=== PATIENT | male | born 1975 ===

== ENCOUNTER 2018-01-01 20:12 | Inpatient (IN) | payer MEDICAID, OTHER ==
[2018-01-01] MEDS ORDERED: Sodium Chloride 0.9% 1,000 ML IV STA ×2 (20:40→23:06)
--- NOTE | 2018-01-01 20:43 | ED PDOC ---
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 Denies fever, vomiting, chest pain, shortness of breath, palpitations, urinary symptoms, changes in bowel movements. Patient reports similar symptoms 2 years ago, states he was told he needed surgery but never followed up Past Medical History Reviewed: Historical Data, Nursing Documentation, Vital Signs Vital Signs: Last Vital Signs Temp 97.4 F L 01/02/18 01:26 Pulse 64 01/02/18 01:26 Resp 19 01/02/18 01:26 BP 127/80 01/02/18 01:26 Pulse Ox 100 01/02/18 02:57 - Medical History PMH: No Chronic Diseases Denies: HIV - Surgical History Surgical History: No Surg Hx - Family History Family History: States: No Known Family Hx - Home Medications Home Medications: Ambulatory Orders Medication Instructions Recorded Ibuprofen [Motrin Tab] 01/02/18 - Allergies Allergies/Adverse Reactions: Allergies Allergy/AdvReac Type Severity Reaction Status Date / Time No Known Allergies Allergy Verified 09/30/14 12:25 Review of Systems ROS Statement: Except As Marked, All Systems Reviewed And Found Negative Gastrointestinal: Positive for: Abdominal Pain Physical Exam - Reviewed Nursing Documentation Reviewed: Yes Vital Signs Reviewed: Yes - Physical Exam Appears: Positive for: Well, Non-toxic, Uncomfortable Head Exam: Positive for: ATRAUMATIC, NORMAL INSPECTION, NORMOCEPHALIC Skin: Positive for: Normal Color, Diaphoresis Eye Exam: Positive for: Normal appearance ENT: Positive for: Normal ENT Inspection Cardiovascular/Chest: Positive for: Regular Rate, Rhythm Respiratory: Positive for: Normal Breath Sounds Gastrointestinal/Abdominal: Positive for: Bowel Sounds, Soft, Tenderness (ruq, epigastric) Back: Positive for: Normal Inspection Extremity: Positive for: Normal ROM Neurologic/Psych: Positive for: Alert, Oriented - Laboratory Results Result Diagrams: 01/01/18 21:04 01/01/18 21:04 - ECG ECG: Positive for: Viewed By Me (reviewed by ED attending) ECG Rhythm: Positive for: Sinus Bradycardia (55bpm) O2 Sat by Pulse Oximetry: 100 - Progress ED Course And Treament: labs, RUQ u/s, IV fluids, IV toradol IV morphine dose given for no improvement of pain after TOradol EXAM: US Abdomen Limited, Right Upper Quadrant CLINICAL HISTORY: 42 years old, male; Pain; Abdominal pain; Epigastric; Additional info: Ruq pain TECHNIQUE: Real-time ultrasound of the right upper quadrant with image documentation. COMPARISON: No relevant prior studies available. FINDINGS: Liver: Fatty infiltration. No mass. No intrahepatic ductal dilatation. Gallbladder: Gallstones. Up to 0.32 cm wall thickness. Small pericholecystic fluid. No sonographic Meza's sign. Common bile duct: Up to 0.86 cm in diameter. No stones. Pancreas: Unremarkable as visualized. Right kidney: Normal echogenicity. No hydronephrosis. IMPRESSION: 1. Findings concerning for acute cholecystitis. Clinical correlation is needed. 2. Biliary ductal dilatation. Consider MRCP. 3. Incidental/non-acute findings are described above. second IV morphine dose ordered for returning pain after u/s On re-eval, patient with only "small" amount of improvement of pain after analgesics given in ED. IV cipro, IV flagyl dose ordered Case discussed with Dr. Rodriguez, Hospitalist on-call for admission Case discussed with Dr. Ospina, surgical dental assistant on-call for consult Disposition - Clinical Impression Clinical Impression: Cholecystitis - Patient ED Disposition Is Patient to be Admitted: Yes - Disposition Disposition Time: 23:40 Condition: FAIR
[2018-01-01] MEDS ORDERED: Morphine 4 MG/ML VIAL ONE ×2 (21:04→22:32)
[2018-01-01 21:11] LABS: BASO % 0.5 % (0.0-2.0); EOS # 0.1 K/uL (0.0-0.7); EOS % 1.1 % (0.0-4.0); LYMPH % 33.4 % (20.0-40.0); MEAN CELL VOLUME 89.1 fl (80.0-94.0); MEAN CORPUSCULAR HGB CONC 34.8 g/dL (33.0-37.0); MEAN PLATELET VOLUME 8.2 fl (7.2-11.7); MONO # 0.8 K/uL (0.0-0.8); MONO % 9.5 % (0.0-10.0); NEUT % 55.5 % (50.0-75.0); NRBC % 0.1 % (0.0-0.0); RBC 5.17 Mil/uL (4.40-5.90); RED CELL DISTRIBUTION WIDTH 14.4 % (11.5-14.5)
[2018-01-01 21:20] LABS: ALB/GLOB RATIO 1.2 (1.0-2.1); ALBUMIN 4.8 g/dL (3.5-5.0); ALT/SGPT 98 U/L (21-72); AST/SGOT 42 U/L (17-59); BLOOD UREA NITROGEN 17 mg/dl (9-20); GFR AFRICAN-AMERICAN > 60; GFR NON-AFRICAN AMERICAN > 60; LIPASE 201 U/L (23-300)
[2018-01-01 21:35] LABS: PARTIAL THROMBOPLASTIN TIME 34.8 Seconds (25.6-37.1); PROTHROMBIN TIME 11.4 Seconds (9.8-13.1)
--- NOTE | 2018-01-01 22:48 | US ---
EXAM: US Abdomen Limited, Right Upper Quadrant CLINICAL HISTORY: 42 years old, male; Pain; Abdominal pain; Epigastric; Additional info: Ruq pain TECHNIQUE: Real-time ultrasound of the right upper quadrant with image documentation. COMPARISON: No relevant prior studies available. FINDINGS: Liver: Fatty infiltration. No mass. No intrahepatic ductal dilatation. Gallbladder: Gallstones. Up to 0.32 cm wall thickness. Small pericholecystic fluid. No sonographic Meza's sign. Common bile duct: Up to 0.86 cm in diameter. No stones. Pancreas: Unremarkable as visualized. Right kidney: Normal echogenicity. No hydronephrosis. IMPRESSION: 1. Findings concerning for acute cholecystitis. Clinical correlation is needed. 2. Biliary ductal dilatation. Consider MRCP. 3. Incidental/non-acute findings are described above.
[2018-01-01 23:16] LABS: URINE BILIRUBIN NEGATIVE (NEGATIVE); URINE BLOOD NEGATIVE (NEGATIVE); URINE CLARITY CLEAR (Clear); URINE COLOR YELLOW (YELLOW); URINE GLUCOSE (UA) NEG (Normal); URINE LEUKOCYTE ESTERASE NEG Leu/uL (Negative); URINE PROTEIN NEGATIVE (NEGATIVE); URINE UROBILINOGEN 0.2-1.0 mg/dL (0.2-1.0)
[2018-01-01] MEDS ORDERED: Ciprofloxacin 400mg/200ml D5W 400 MG/200 ML BAG IV ONE (23:46)
[2018-01-01] MEDS ORDERED: metroNIDAZOLE 500mg/100ml NS 100 ML IV STA (23:46)
--- NOTE | 2018-01-02 00:13 | CP.PCM.CON ---
History of Present Illness - History of Present Illness History of Present Illness: Surgery Consult note. Dr. Kraft 42yo M with no significant PMHx here for evaluation of abdominal pain. Reports that the pain started at 5PM today, 30 mins after he had grilled chicken and rice. Pain is located in the RUQ, does not radiate. Described as sharp, severe. Does report some nausea, denies vomiting. Denies any fevers of chills. Has had similar symptoms in the past. Seen in [facility] in 2014 for biliary colic and was recommended f/u as outpatient to schedule elective all. Patient did not follow up. He reports another episode 1 year ago and was seen at another hospital, he was offered cholecystectomy but he states that he did not want it at the time as he lives alone and did not have any support at home. At this time , patient states that he is agreeable to surgery if warranted. Currently denies CP/SOB. No Headaches. No urinary complaints. No sick contacts. PMHx: denies PSHx: denies Family Hx: non-contributory Social Hx: Lives alone. Denies Tobacco, Denies ETOH, Denies illicit drugs NKDA Review of Systems - Review of Systems All systems: reviewed and no additional remarkable complaints except - Constitutional Constitutional: absent: Chills, Fever - Cardiovascular Cardiovascular: absent: Chest Pain, Dyspnea - Respiratory Respiratory: absent: Dyspnea - Gastrointestinal Gastrointestinal: Abdominal Pain, Nausea. absent: Constipation, Cramping, Diarrhea, Hematemesis, Hematochezia, Vomiting - Genitourinary Genitourinary: absent: Dysuria Past Patient History - Infectious Disease Hx of Infectious Diseases: None - Tetanus Immunizations Tetanus Immunization: Unknown - Past Medical History & Family History Past Medical History?: No Past Family History: Reviewed and not pertinent - Past Social History Smoking Status: Never Smoked Alcohol: None Drugs: Denies Home Situation {Lives}: Alone - HEMATOLOGICAL/ONCOLOGICAL Hx Human Immunodeficiency Virus (HIV): No - MUSCULOSKELETAL/RHEUMATOLOGICAL Hx Falls: No - PSYCHIATRIC Hx Substance Use: No Meds Allergies/Adverse Reactions: Allergies Allergy/AdvReac Type Severity Reaction Status Date / Time No Known Allergies Allergy Verified 09/30/14 12:25 - Medications Medications: Current Medications Ciprofloxacin (Cipro 400mg/200ml Dsw) 400 mg in 200 mls @ 400 mls/hr IV ONCE ONE PRN Reason: Protocol Stop: 01/02/18 00:15 Metronidazole (Flagyl 500mg/100ml Ns) 100 mls @ 100 mls/hr IV STAT STA PRN Reason: Protocol Stop: 01/02/18 00:45 Physical Exam - Constitutional Appears: Non-toxic, No Acute Distress - Head Exam Head Exam: ATRAUMATIC, NORMAL INSPECTION, NORMOCEPHALIC - Eye Exam Eye Exam: EOMI, Scleral icterus (mild scleral icterus noted) - ENT Exam ENT Exam: Mucous Membranes Moist Additional comments: some yellowing noted under the tongue - Respiratory Exam Respiratory Exam: NORMAL BREATHING PATTERN. absent: Accessory Muscle Use, Respiratory Distress - Cardiovascular Exam Cardiovascular Exam: RRR. absent: JVD - GI/Abdominal Exam GI & Abdominal Exam: Soft. absent: Distended, Firm, Guarding, Rebound, Rigid Additional comments: RUQ tenderness to palpation. No rebound, no guarding. - Extremities Exam Extremities exam: Positive for: normal inspection. Negative for: calf tenderness - Neurological Exam Neurological exam: Alert, Oriented x3 - Psychiatric Exam Psychiatric exam: Normal Affect, Normal Mood - Skin Skin Exam: Dry, Normal Color, Warm Results - Vital Signs Recent Vital Signs: Last Vital Signs Temp 97.7 F 01/01/18 20:29 Pulse 77 01/01/18 20:29 Resp 18 01/01/18 20:29 BP 151/86 H 01/01/18 22:32 Pulse Ox 100 01/01/18 23:29 - Labs Result Diagrams: 01/01/18 21:04 01/01/18 21:04 Labs: Laboratory Results - last 24 hr 01/01/18 01/01/18 01/01/18 21:04 21:04 21:04 WBC 9.0 D RBC 5.17 Hgb 16.0 Hct 46.0 MCV 89.1 MCH 31.0 MCHC 34.8 RDW 14.4 Plt Count 224 MPV 8.2 Neut % (Auto) 55.5 Lymph % (Auto) 33.4 [place] % (Auto) 9.5 Eos % (Auto) 1.1 Baso % (Auto) 0.5 Neut # (Auto) 5.0 Lymph # (Auto) 3.0 [place] # (Auto) 0.8 Eos # (Auto) 0.1 Baso # (Auto) 0.0 PT 11.4 INR 1.0 APTT 34.8 Sodium 142 Potassium 3.4 L Chloride 102 Carbon Dioxide 25 Anion Gap 18 BUN 17 Creatinine 0.7 L Est GFR ( Amer) > 60 Est GFR (Non-Af Amer) > 60 Random Glucose 127 H Calcium 9.0 Total Bilirubin 2.4 H AST 42 ALT 98 H D Alkaline Phosphatase 67 Total Protein 8.6 H Albumin 4.8 Globulin 3.8 Albumin/Globulin Ratio 1.2 Lipase 201 Urine Color Urine Clarity Urine pH Ur Specific [place] Urine Protein Urine Glucose (UA) Urine Ketones Urine Blood Urine Nitrate Urine Bilirubin Urine Urobilinogen Ur Leukocyte Esterase Urine RBC (Auto) Urine Microscopic WBC 01/01/18 23:10 WBC RBC Hgb Hct MCV MCH MCHC RDW Plt Count MPV Neut % (Auto) Lymph % (Auto) [place] % (Auto) Eos % (Auto) Baso % (Auto) Neut # (Auto) Lymph # (Auto) [place] # (Auto) Eos # (Auto) Baso # (Auto) PT INR APTT Sodium Potassium Chloride Carbon Dioxide Anion Gap BUN Creatinine Est GFR ( Amer) Est GFR (Non-Af Amer) Random Glucose Calcium Total Bilirubin AST ALT Alkaline Phosphatase Total Protein Albumin Globulin Albumin/Globulin Ratio Lipase Urine Color Yellow Urine Clarity Clear Urine pH 7.0 Ur Specific [place] 1.016 Urine Protein Negative Urine Glucose (UA) Neg Urine Ketones Negative Urine Blood Negative Urine Nitrate Negative Urine Bilirubin Negative Urine Urobilinogen 0.2-1.0 Ur Leukocyte Esterase Neg Urine RBC (Auto) 2 Urine Microscopic WBC < 1 Assessment & Plan - Assessment and Plan (Free Text) Assessment: 42yo M with cholecystitis. r/o choledocholithiasis, r/o cholangitis - Abd US noted: cholelithiasis, CBD dilatation 8.6mm, mild GB wall thickening 3.2mm, small perichole fluid. - Lipase upper limits of normal - elevated LFTs. Hyperbilirubinemia Plan: - NPO - IVF - Continue Abx - Consider ERCP in the setting of RUQ pain, CBD dilatation, jaundice and upper limit normal lipase - f/u GI recs - f/u AM labs. Trend LFTs - We will monitor patient's clinical status and make further recommendations as needed. Further recs as per Dr. Swapnil Ospina PGY1 surgery pager: [phone]
[2018-01-02] MEDS ORDERED: HYDROmorphone 0.5 mg/0.5 ml ISec IVP PRN (00:16)
[2018-01-02] MEDS ORDERED: Ciprofloxacin 400mg/200ml D5W 400 MG/200 ML BAG IVPB ONE (00:47)
[2018-01-02] MEDS ORDERED: metroNIDAZOLE 500mg/100ml NS 100 ML IVPB ONE (00:47)
--- NOTE | 2018-01-02 01:18 | CP.PCM.HP ---
History of Present Illness - History of Present Illness History of Present Illness: CC: Abdominal pain This is a 42 yo male with pmh of previous admission in 2015 with biliary colic, seen by surgery and was recommended to f/u as outpatient to schedule elective all but did not follow up, now presenting to the ED with c/o 5 days of intractable right upper quadrant pain, moderate to severe, crampy, severe, and progressively worsening, associated with nausea without vomiting. In the ED, the patient was found to be hemodynamically stable. No WBC elevation, does have K 3.4, mild elevation in Total bilirubin to 2.4. Abdominal ultrasound does have findings concerning for acute cholecystitis with some biliary ductal dilatation. Patient denies chest pain, shortness of breath, fevers, chills, vomiting, diarrhea, headache. All of the patient's questions were answered at the bedside. Present on Admission - Present on Admission Any Indicators Present on Admission: No History of DVT/PE: No History of Uncontrolled Diabetes: No Review of Systems - Review of Systems Review of Systems: A 12 point review of systems was conducted and found to be negative other than what was mentioned in the HPI. Past Patient History - Infectious Disease Hx of Infectious Diseases: None - Tetanus Immunizations Tetanus Immunization: Unknown - Past Medical History & Family History Past Medical History?: No Past Family History: Reviewed and not pertinent - Past Social History Smoking Status: Never Smoked Alcohol: None Drugs: Denies Home Situation {Lives}: Alone - HEMATOLOGICAL/ONCOLOGICAL Hx Human Immunodeficiency Virus (HIV): No - MUSCULOSKELETAL/RHEUMATOLOGICAL Hx Falls: No - PSYCHIATRIC Hx Substance Use: No Meds Allergies/Adverse Reactions: Allergies Allergy/AdvReac Type Severity Reaction Status Date / Time No Known Allergies Allergy Verified 09/30/14 12:25 Physical Exam - Additional Findings Additional findings: Physical exam: Constitutional- cooperative, awake, alert Head- NCAT, PERRL Eye- PERRL, EOMI. +scleral icterus ENT- normal exam, MMM. Neck- normal inspection, supple, no JVD Respiratory- CTAB, no wheezes rales rhonchi Cardiovascular- RRR, +S1, +S2 no MRG GI/Abdominal- + RUQ pain to palpation. normal bowel sounds, soft, no mass, no hsm Skin- warm, dry Extremities Exam- normal capillary refill, normal inspection Neurological Exam- alert, awake, oriented Psych- normal mood, normal affect Results - Vital Signs Recent Vital Signs: Last Vital Signs Temp 97.7 F 01/01/18 20:29 Pulse 77 01/01/18 20:29 Resp 18 01/01/18 20:29 BP 151/86 H 01/01/18 22:32 Pulse Ox 100 01/01/18 23:29 - Labs Result Diagrams: 01/01/18 21:04 01/01/18 21:04 Labs: Laboratory Results - last 24 hr 01/01/18 01/01/18 01/01/18 21:04 21:04 21:04 WBC 9.0 D RBC 5.17 Hgb 16.0 Hct 46.0 MCV 89.1 MCH 31.0 MCHC 34.8 RDW 14.4 Plt Count 224 MPV 8.2 Neut % (Auto) 55.5 Lymph % (Auto) 33.4 [place] % (Auto) 9.5 Eos % (Auto) 1.1 Baso % (Auto) 0.5 Neut # (Auto) 5.0 Lymph # (Auto) 3.0 [place] # (Auto) 0.8 Eos # (Auto) 0.1 Baso # (Auto) 0.0 PT 11.4 INR 1.0 APTT 34.8 Sodium 142 Potassium 3.4 L Chloride 102 Carbon Dioxide 25 Anion Gap 18 BUN 17 Creatinine 0.7 L Est GFR ( Amer) > 60 Est GFR (Non-Af Amer) > 60 Random Glucose 127 H Calcium 9.0 Total Bilirubin 2.4 H AST 42 ALT 98 H D Alkaline Phosphatase 67 Total Protein 8.6 H Albumin 4.8 Globulin 3.8 Albumin/Globulin Ratio 1.2 Lipase 201 Urine Color Urine Clarity Urine pH Ur Specific [place] Urine Protein Urine Glucose (UA) Urine Ketones Urine Blood Urine Nitrate Urine Bilirubin Urine Urobilinogen Ur Leukocyte Esterase Urine RBC (Auto) Urine Microscopic WBC 01/01/18 23:10 WBC RBC Hgb Hct MCV MCH MCHC RDW Plt Count MPV Neut % (Auto) Lymph % (Auto) [place] % (Auto) Eos % (Auto) Baso % (Auto) Neut # (Auto) Lymph # (Auto) [place] # (Auto) Eos # (Auto) Baso # (Auto) PT INR APTT Sodium Potassium Chloride Carbon Dioxide Anion Gap BUN Creatinine Est GFR ( Amer) Est GFR (Non-Af Amer) Random Glucose Calcium Total Bilirubin AST ALT Alkaline Phosphatase Total Protein Albumin Globulin Albumin/Globulin Ratio Lipase Urine Color Yellow Urine Clarity Clear Urine pH 7.0 Ur Specific [place] 1.016 Urine Protein Negative Urine Glucose (UA) Neg Urine Ketones Negative Urine Blood Negative Urine Nitrate Negative Urine Bilirubin Negative Urine Urobilinogen 0.2-1.0 Ur Leukocyte Esterase Neg Urine RBC (Auto) 2 Urine Microscopic WBC < 1 Assessment & Plan - Assessment and Plan (Free Text) Plan: ASSESSMENT/PLAN This is a 42 yo male with pmh of previous admission in 2014 with biliary colic, seen by surgery and was recommended to f/u as outpatient to schedule elective all but did not follow up, now presenting to the ED with c/o 5 days of intractable right upper quadrant pain, moderate to severe, crampy, severe, and progressively worsening, associated with nausea without vomiting. Being admitted for acute cholecystitis for further workup and management 1) Acute cholecystitis, r/o choledocholithiasis - Admit to med/surg - Consultation with Dr. Kraft, surgery - Consultation with Dr. Ferrara, GI - In the setting of biliary ductal dilatation, will order MRCP for further evaluation of this - Trend transaminases/bilirubin - Zofran PRN for nausea - Pain control with dilaudid - IV fluids - Cipro/Flagyl - NPO status 2) Hypokalemia - likely due to poor GI intake - replete 3) DVT prophylaxis - SCDs
[2018-01-02] MEDS: Sodium Chloride 0.9% 1,000 ML IV SCH ×3 (01:46→17:58)
[2018-01-02] MEDS: metroNIDAZOLE 500mg/100ml NS 100 ML IVPB SCH ×2 (01:52→10:37)
[2018-01-02 06:51] LABS: BASO % 0.1 % (0.0-2.0); HEMOGLOBIN 14.5 g/dL (12.0-18.0); LYMPH # 1.2 K/uL (1.0-4.3); LYMPH % 9.3 % (20.0-40.0); MEAN CELL VOLUME 89.1 fl (80.0-94.0); MEAN CORPUSCULAR HEMOGLOBIN 30.9 pg (27.0-31.0); MEAN CORPUSCULAR HGB CONC 34.7 g/dL (33.0-37.0); MEAN PLATELET VOLUME 8.2 fl (7.2-11.7); MONO # 1.2 K/uL (0.0-0.8); MONO % 8.8 % (0.0-10.0); NEUT # 10.6 K/uL (1.8-7.0); NEUT % 81.8 % (50.0-75.0); NRBC % 0.1 % (0.0-0.0); PLATELET COUNT 185 K/uL (130-400); RBC 4.69 Mil/uL (4.40-5.90); RED CELL DISTRIBUTION WIDTH 13.9 % (11.5-14.5)
[2018-01-02 07:30] LABS: ALB/GLOB RATIO 1.2 (1.0-2.1); ALBUMIN 3.9 g/dL (3.5-5.0); ALT/SGPT 88 U/L (21-72); AST/SGOT 44 U/L (17-59); BILIRUBIN,DIRECT 0.2 mg/ml (0.0-0.4); BLOOD UREA NITROGEN 11 mg/dl (9-20); GFR AFRICAN-AMERICAN > 60; GFR NON-AFRICAN AMERICAN > 60
[2018-01-02 07:50] LABS: LYMPHOCYTE 9 % (20-50); MONOCYTE 11 % (0-10); NEUTROPHIL 80 % (42-75); TOTAL CELLS COUNTED 100
[2018-01-02 07:52] LABS: PLATELET ESTIMATE NORMAL (NORMAL)
[2018-01-02] MEDS ORDERED: Ciprofloxacin 200mg/100ml D5W 100 ML IVPB SCH (09:00)
[2018-01-02 13:19] LABS: LIPASE 127 U/L (23-300)
[2018-01-02] MEDS ORDERED: Sodium Chloride 0.9% 50 ML IV ONE (13:38)
[2018-01-02] MEDS ORDERED: Gadodiamide 287 MG/ML VIAL (15ML) IV ONE (13:38)
[2018-01-02] MEDS: Piperacillin/Tazobact 3.375 GM in Sodium Chloride 0.9% 100 ML IVPB SCH ×2 (15:18→21:17)
--- NOTE | 2018-01-02 15:52 | MRI ---
PROCEDURE: Magnetic Resonance Cholangiopancreatography HISTORY: COMPARISON: None available. TECHNIQUE: Multiplanar, multisequence MR images of the abdomen were obtained, including heavily T2 weighted MRCP images of the biliary system. Rotating maximum intensity projection images of the biliary system were generated. FINDINGS: MRCP: The common bile duct is of a normal caliber. No gross evidence of choledocholithiasis. No intrahepatic biliary ductal dilatation. LIVER: Hepatic steatosis with probable hepatic sparing of the caudate lobe and bordering some portions of the gallbladder and left lateral hepatic lobe are believe most likely. As a precaution, consider follow-up MR of the liver without with contrast enhancement in 6 months . No suspicious lesions are identified. No dilated intrahepatic bile ducts GALLBLADDER: Multiple gallstones within the gallbladder. The cystic duct is difficult to identify with certainty. No dilated extra hepatic bile ducts are seen. No gross extrahepatic / common bile duct stones appreciated. Sand like common bile duct choledocholithiasis is not excluded. No stricture seen. SPLEEN: Unremarkable. PANCREAS: Unremarkable. No pancreatic ductal dilatation noted ADRENALS: Unremarkable. KIDNEYS: Unremarkable. AORTA: No aneurysm. ASCITES: None. OTHER FINDINGS: None. IMPRESSION: Gallstones without gross common bile duct stone resulting in any significant obstruction. Sand like common bile duct choledocholithiasis is not excluded. No stricture seen. Hepatic steatosis - areas of fatty sparing probable as referenced above. Consider follow-up MRI liver exam without with contrast in 6 months to assure stable pattern
--- NOTE | 2018-01-02 16:21 | CARD ---
APPROVED REPORT EKG Measurement Heart [id number] <Conclusion> Sinus bradycardia Otherwise normal ECG
[2018-01-03] MEDS: Piperacillin/Tazobact 3.375 GM in Sodium Chloride 0.9% 100 ML IVPB SCH ×2 (04:48→13:32)
[2018-01-03 06:04] LABS: BASO % 0.4 % (0.0-2.0); EOS # 0.1 K/uL (0.0-0.7); EOS % 0.7 % (0.0-4.0); HEMOGLOBIN 14.9 g/dL (12.0-18.0); LYMPH # 1.4 K/uL (1.0-4.3); LYMPH % 12.3 % (20.0-40.0); MEAN CELL VOLUME 89.9 fl (80.0-94.0); MEAN CORPUSCULAR HEMOGLOBIN 30.9 pg (27.0-31.0); MEAN CORPUSCULAR HGB CONC 34.4 g/dL (33.0-37.0); MEAN PLATELET VOLUME 8.2 fl (7.2-11.7); MONO # 1.2 K/uL (0.0-0.8); MONO % 10.4 % (0.0-10.0); NEUT # 8.6 K/uL (1.8-7.0); NEUT % 76.2 % (50.0-75.0); NRBC % 0.1 % (0.0-0.0); RBC 4.81 Mil/uL (4.40-5.90); RED CELL DISTRIBUTION WIDTH 14.1 % (11.5-14.5); WHITE BLOOD COUNT 11.3 K/uL (4.8-10.8)
[2018-01-03 06:54] LABS: ALB/GLOB RATIO 1.1 (1.0-2.1); ALBUMIN 3.8 g/dL (3.5-5.0); ALT/SGPT 71 U/L (21-72); AST/SGOT 28 U/L (17-59); BLOOD UREA NITROGEN 7 mg/dl (9-20); CALCIUM 8.3 mg/dL (8.4-10.2); GFR AFRICAN-AMERICAN > 60; GFR NON-AFRICAN AMERICAN > 60
--- NOTE | 2018-01-03 08:45 | CON ---
DATE: 01/01/2018 REFERRING PHYSICIANS: Mina Rodriguez DO and Dr. Rutherford. REASON FOR CONSULTATION: Abdominal pain. HISTORY OF PRESENT ILLNESS: This is a 42-year-old man with no past medical history essentially, has some episodes about 2 years or 3 years followup, now comes in with 5 days of abdominal pain and discomfort, epigastric discomfort . No nausea. No vomiting. At this point, fevers and chills have all improved. Currently lying in the bed comfortably and in no apparent distress. PAST MEDICAL HISTORY: As above. PAST SURGICAL HISTORY: As above. MEDICATIONS: Have been reviewed. REVIEW OF SYSTEMS: All other systems have been reviewed and negative apart from the HPI. PHYSICAL EXAMINATION: VITAL SIGNS: Here in the hospital are grossly unremarkable. GENERAL: A pleasant middle-aged man, lying in bed comfortably and in no apparent distress. HEENT: Head is normocephalic and atraumatic. Eyes; pupils are equally reactive to light bilaterally. No conjunctival pallor or icterus. NECK: Supple. Normal range of motion. No lymphadenopathy appreciated. LUNGS: Coarse breath sounds bilaterally. HEART: S1 and S2, regular rate and rhythm. No murmurs appreciated. ABDOMEN: Soft and nontender. Bowel sounds are present. No rebound. No guarding. RECTAL: Deferred. EXTREMITIES: Pulses felt bilaterally. SKIN: Warm, dry and intact. NEUROLOGIC: A and O x3. LABORATORY DATA: Labs and radiology have been reviewed. WBC is 13.9, hemoglobin 14.5, hematocrit . Total bilirubin is 2.5, of which 0.2 is direct. AST and ALT 44/88. Alk phos is normal. Abdominal ultrasound shows congenital cholecystitis, mild CBD dilation, and multiple gallstones. ASSESSMENT AND PLAN: This is a 42-year-old man with cholecystitis. From gastroenterology standpoint, the bilirubin elevation is directions more likely Gilbert's disease. There is no alkaline phosphatase elevation. Therefore, the likelihood of retained stone is low. MRCP is pending. If MRCP is positive, we will move forward with an ERCP. If not, then laparoscopic cholecystectomy to follow. Antibiotics until for now. Thank you for the consult. Michael Ferrara MD/
--- NOTE | 2018-01-03 09:55 | CP.PCM.PN ---
Subjective - Date & Time of Evaluation Date of Evaluation: 01/03/18 Time of Evaluation: 09:49 - Subjective Subjective: Gastroenterology Fellow/PGY5 Progress Note Patient denies abdominal pain. Nausea improved with anti-emetics. Remains NPO for lap cholecystectomy today. A 12-point review of systems negative except for as above. Objective - Vital Signs/Intake and Output Vital Signs (last 24 hours): Temp Pulse Resp BP Pulse Ox 97.9 F 84 20 115/73 94 L 01/03/18 08:32 01/03/18 08:32 01/03/18 08:32 01/03/18 08:32 01/03/18 08:32 - Medications Medications: Current Medications Hydromorphone HCl (Dilaudid) 0.5 mg IVP Q4H PRN PRN Reason: Pain, moderate (4-7) Piperacillin Sod/Tazobactam (Sod 3.375 gm/ Sodium Chloride) 100 mls @ 100 mls/ hr IVPB Q8H DONTA PRN Reason: Protocol Last Admin: 01/03/18 04:48 Dose: 100 mls/hr Ondansetron HCl (Zofran Inj) 4 mg IVP Q6 PRN PRN Reason: Nausea/Vomiting - Labs Labs: 01/03/18 05:50 01/03/18 05:50 PT 11.4 Seconds (9.8-13.1) 01/01/18 21:04 INR 1.0 (0.9-1.2) 01/01/18 21:04 APTT 34.8 Seconds (25.6-37.1) 01/01/18 21:04 - Constitutional Appears: Non-toxic, No Acute Distress - Head Exam Head Exam: ATRAUMATIC, NORMOCEPHALIC - Eye Exam Eye Exam: EOMI, PERRL. absent: Scleral icterus Pupil Exam: PERRL. absent: Miosis, Mydriatic - ENT Exam ENT Exam: Mucous Membranes Moist, Normal Oropharynx - Neck Exam Neck Exam: Full ROM, Normal Inspection - Respiratory Exam Respiratory Exam: Clear to Ausculation Bilateral. absent: Rales, Rhonchi, Wheezes - Cardiovascular Exam Cardiovascular Exam: RRR, +S1, +S2. absent: Gallop, Rubs - GI/Abdominal Exam GI & Abdominal Exam: Soft, Normal Bowel Sounds. absent: Distended, Firm, Guarding, Rigid, Tenderness, Organomegaly, Rebound - Extremities Exam Extremities Exam: Full ROM, Normal Inspection. absent: Pedal Edema - Neurological Exam Neurological Exam: Alert, Awake, Oriented x3 - Psychiatric Exam Psychiatric exam: Normal Affect, Normal Mood - Skin Skin Exam: Dry, Intact, Normal Color, Warm Assessment and Plan - Assessment and Plan (Free Text) Assessment: 42 year old male with PMH of cholelithiasis presenting with abdominal pain. Active treatment of calculous cholecystitis. No prior EGD or colonoscopy. Plan: -unconjugated hyperbilirubinemia -improved alanine aminotransferase elevation -negative hepatitis panel -MRCP- no choledocholithiasis, sludge not excluded -NPO -surgery managing- lap all with IOC planned today -follow bilirubin trend post-procedure -on Zosyn day 2
[2018-01-03] MEDS ORDERED: Iohexol 300 100 ML IJ ONE (11:23)
[2018-01-03] MEDS ORDERED: Lidocaine 2% Inj (20ml) ONE (11:23)
[2018-01-03] MEDS ORDERED: Glucagon Recombinant 1 mg Inj IM ONE (11:58)
[2018-01-03] MEDS ORDERED: Succinylcholine 200 mg/10 ml Inj IV ONE (12:16)
[2018-01-03] MEDS ORDERED: Propofol 10 mg/ml Inj (20 ML) ONE (12:16)
[2018-01-03] MEDS ORDERED: Midazolam 2 MG/2 ML VIAL ONE (12:16)
[2018-01-03] MEDS ORDERED: Rocuronium 10 mg/ml (5 ml) ONE ×2 (12:16→13:13)
[2018-01-03] MEDS ORDERED: Iodixanol 320 MG/ML 100 ML BOTTLE IV ONE (12:25)
[2018-01-03] MEDS ORDERED: Lactated Ringer's 1,000 ML IV ONE ×2 (12:30→17:20)
[2018-01-03] MEDS ORDERED: Glucagon Recombinant 1 mg Inj ONE (12:31)
[2018-01-03] MEDS ORDERED: Piperacillin/Tazobact 3.375 gm Inj IVPB ONE (12:35)
--- NOTE | 2018-01-03 12:43 | CP.PCM.PN ---
Subjective - Date & Time of Evaluation Date of Evaluation: 01/03/18 Time of Evaluation: 10:00 - Subjective Subjective: Patient see. All chart and clinical data reviewed . Care resumed .Feeling better.pain is controlled. NPO . Hemodynamically stable MRCP showed cholelithiasis , no CBD dilatation For OR today for laparascopic cholcystectomy Objective - Vital Signs/Intake and Output Vital Signs (last 24 hours): Temp Pulse Resp BP Pulse Ox 97.9 F 84 20 115/73 94 L 01/03/18 08:32 01/03/18 08:32 01/03/18 08:32 01/03/18 08:32 01/03/18 08:32 - Medications Medications: Current Medications Hydromorphone HCl (Dilaudid) 0.5 mg IVP Q4H PRN PRN Reason: Pain, moderate (4-7) Piperacillin Sod/Tazobactam (Sod 3.375 gm/ Sodium Chloride) 100 mls @ 100 mls/ hr IVPB Q8H DONTA PRN Reason: Protocol Last Admin: 01/03/18 04:48 Dose: 100 mls/hr Ondansetron HCl (Zofran Inj) 4 mg IVP Q6 PRN PRN Reason: Nausea/Vomiting - Labs Labs: 01/03/18 05:50 01/03/18 05:50 PT 11.4 Seconds (9.8-13.1) 01/01/18 21:04 INR 1.0 (0.9-1.2) 01/01/18 21:04 APTT 34.8 Seconds (25.6-37.1) 01/01/18 21:04 - Constitutional Appears: Non-toxic, No Acute Distress - Head Exam Head Exam: ATRAUMATIC, NORMAL INSPECTION, NORMOCEPHALIC - Eye Exam Eye Exam: Conjunctival injection, EOMI, PERRL Pupil Exam: NORMAL ACCOMODATION - ENT Exam ENT Exam: Mucous Membranes Moist, Normal Exam - Neck Exam Neck Exam: Full ROM, Normal Inspection - Respiratory Exam Respiratory Exam: Clear to Ausculation Bilateral. absent: Rales, Rhonchi, Wheezes - Cardiovascular Exam Cardiovascular Exam: REGULAR RHYTHM, RRR, +S1, +S2. absent: JVD - GI/Abdominal Exam GI & Abdominal Exam: Soft, Normal Bowel Sounds. absent: Distended, Guarding, Tenderness, Rebound - Rectal Exam Rectal Exam: Deferred - Extremities Exam Extremities Exam: Full ROM, Normal Capillary Refill, Normal Inspection. absent : Pedal Edema - Back Exam Back Exam: NORMAL INSPECTION - Neurological Exam Neurological Exam: Alert, Awake, CN II-XII Intact, Oriented x3 - Psychiatric Exam Psychiatric exam: Normal Affect, Normal Mood - Skin Skin Exam: Dry, Intact, Normal Color, Warm Assessment and Plan - Assessment and Plan (Free Text) Assessment: 42 yo male with PMH of biliary colic in 2014 who was recommended elective cholecystectomy, but did not follow up, presented to the ER with 5 day history intractable right upper quadrant pain, moderate to severe, crampy, severe, and progressively worsening, associated with nausea without vomiting.Abdominal US showed acute cholecystitis. Patient admitted with diagnosis of acute cholecystitis, kept NPO, started on IVF,Zosyn IV and pain management, surgery and GI consulted . MRCP showed no CBD stone . Today waiting for lap cholecystectomy . 1.Acute cholecystitis and cholelithiasis US showed acute cholecystitis MRCP showed cholelithiasis but no CBD stone For OR today by surgery for lap cholecystectomy, even though sand like CBD stone not excluded Continue IVF and pain management Received 1 dose Cipro and 1 dose Flagyl. Continue Zosyn IV Repeat CBC and CMP in AM 2. Hepatic Steatosis unclear etiology will need follow up in 6 months with MRI lipid panel,hepatitis profile Repeat Bilirubin in AM 3. Hypokalemia likely due to poor GI intake replaced 4. DVT prophylaxis SCDs
[2018-01-03] MEDS ORDERED: Bupivacaine 0.25% Inj(30mL) IJ ONE ×2 (12:55)
[2018-01-03] MEDS ORDERED: Lactated Ringer's 500 ML IV ONE ×2 (14:25→15:00)
--- NOTE | 2018-01-03 15:52 | PCM.SURG1 ---
Surgeon's Initial Post Op Note - Surgeon's Notes Surgeon: Dr. Kraft Associate Data Scientist: Bhavesh PGY1 Type of Anesthesia: General Endo, Local Pre-Operative Diagnosis: Cholecystitis Operative Findings: see operative report Post-Operative Diagnosis: same Operation Performed: Laparascopic Cholecystectomy with Intraoperative cholangiogram Specimen/Specimens Removed: gallbladder Estimated Blood Loss: EBL {In ML}: 25 Blood Products Given: N/A Drains Used: No Drains Post-Op Condition: Good Date of Surgery/Procedure: 01/03/18 Time of Surgery/Procedure: 15:51
[2018-01-03] MEDS ORDERED: HYDROmorphone 0.5 mg/0.5 ml ISec IVP PRN (16:04)
[2018-01-03] MEDS ORDERED: Oxycodone/Acetaminophen 5/325 mg Tab PO PRN (16:06)
[2018-01-03] MEDS ORDERED: Lactated Ringer's 1,000 ML IV SCH (16:15)
[2018-01-03] MEDS ORDERED: Piperacillin/Tazobact 3.375 GM in Sodium Chloride 0.9% 100 ML IVPB ONE (19:30)
[2018-01-04 06:25] LABS: HEMOGLOBIN 13.7 g/dL (12.0-18.0); MEAN CELL VOLUME 88.3 fl (80.0-94.0); MEAN CORPUSCULAR HEMOGLOBIN 31.5 pg (27.0-31.0); MEAN CORPUSCULAR HGB CONC 35.7 g/dL (33.0-37.0); RBC 4.35 Mil/uL (4.40-5.90); RED CELL DISTRIBUTION WIDTH 13.9 % (11.5-14.5); WHITE BLOOD COUNT 10.7 K/uL (4.8-10.8)
[2018-01-04 06:42] LABS: ALB/GLOB RATIO 1.1 (1.0-2.1); ALBUMIN 3.4 g/dL (3.5-5.0); ALT/SGPT 299 U/L (21-72); AST/SGOT 190 U/L (17-59); BLOOD UREA NITROGEN 9 mg/dl (9-20); GFR AFRICAN-AMERICAN > 60; GFR NON-AFRICAN AMERICAN > 60; HDL CHOLESTEROL 31 MG/DL (30-70)
[2018-01-04 06:58] LABS: LDL CHOLESTEROL < 30 mg/dL (0-129)
[2018-01-04] MEDS ORDERED: Potassium Chloride 20 mEq ER Tab PO ONE (06:58)
--- NOTE | 2018-01-04 07:17 | CP.PCM.PN ---
Subjective - Date & Time of Evaluation Date of Evaluation: 01/04/18 Time of Evaluation: 07:00 - Subjective Subjective: No events overnight. Feels better than pre-op. No nausea/vomiting. tolerated clear liquids. Afebrile. VSS Objective - Vital Signs/Intake and Output Vital Signs (last 24 hours): Temp Pulse Resp BP Pulse Ox 98.0 F 103 H 20 107/58 L 96 01/04/18 00:00 01/04/18 00:00 01/04/18 00:00 01/04/18 00:00 01/04/18 00:00 - Medications Medications: Current Medications Hydromorphone HCl (Dilaudid) 0.5 mg IVP Q4H PRN PRN Reason: Pain, moderate (4-7) Lactated Ringer's (Lactated Ringer's) 1,000 mls @ 100 mls/hr IV .Q10H DONTA Ketorolac Tromethamine (Toradol) 30 mg IVP Q6 DONTA Stop: 01/04/18 10:01 Last Admin: 01/04/18 04:02 Dose: 30 mg Ondansetron HCl (Zofran Inj) 4 mg IVP Q6 PRN PRN Reason: Nausea/Vomiting Oxycodone/Acetaminophen (Percocet 5/325 Mg Tab) 1 tab PO Q6 PRN PRN Reason: Pain, moderate (4-7) Stop: 01/06/18 16:07 Tramadol HCl (Ultram) 50 mg PO Q6 PRN PRN Reason: Pain, moderate (4-7) - Labs Labs: 01/04/18 06:00 01/04/18 06:00 PT 11.4 Seconds (9.8-13.1) 01/01/18 21:04 INR 1.0 (0.9-1.2) 01/01/18 21:04 APTT 34.8 Seconds (25.6-37.1) 01/01/18 21:04 - Additional Findings Additional findings: Well appearing. No distress abd soft, non-distended, appropriate incisional tenderness Incisions clean dry intact with dermabond Assessment and Plan - Assessment and Plan (Free Text) Assessment: POd1 s/p lap all with IOC recovering well. IOC appeared normal with appropriate distal filling of duodenum, proximal hepatic duct bifurcation and secondary radicals without filling defect. However this am his Tbili and LFT's are elevated. GI to perform ERCP and possible stone extraction, sphincterotomy, stent placement as needed. NPO this am for above procedure. Cont. IVF. Toradol and Ultram for pain.
--- NOTE | 2018-01-04 07:54 | PCM.OP ---
Operative Report - Operative Report Date of Surgery/Procedure: 01/03/18 Time of Surgery/Procedure: 12:30 Surgeon: Anastacia Kraft Milk Driver: Collin Ospina Anesthesia/Sedation: GETA. Lidocaine/marcaine mixed solution local anesthsia Pre-Operative Diagnosis: Calculus of gallbladder with acute cholecystitis and possible obstruction Post-Operative Diagnosis: acute cholecystitis without evidence of biliary obstruction Indication for Surgery: 42-year-old male otherwise healthy individual without any prior surgical history with recurrent symptomatic cholelithiasis. He had a similar episode of symptoms in 2014 and never followed up for elective cholecystectomy. He again had another episode last year acute on chronic cholecystitis is what I suspect is given elevated white count and bilirubin and mildly elevated lipase. On exam his he has tenderness supraumbilical and epigastric region as well as the right upper quadrant. I personally reviewed the images of the ultrasound. He does show stones large stones in his gallbladder there is mild dull ductal dilatation and inflammation of the gallbladder wall, and pericholecystic fluid indicating acute cholecystitis. MRCP was performed and did not show any CBD stone or obstruction. stone burden in the gallbladder which is dilated and possible a short cystic duct my concern he has inflammation in the area possibly from a stone at the neck of the gallbladder.He is taken to the operating room for laparoscopic cholecystectomy and intra-operative cholangiogram. The patient understands the risks and benefits of the procedure as documented in the clinic chart but specifically risk of cystic duct leak and common bile duct injury and has consented to the procedure. Operative Findings: Significantly dilated gallbladder. Pericholecystic fluid present. No evidence of abscess or perforation. Gallbladder aspirated and fluid sent for culture. Intra-operative cholangiogram performed without incident and showed no filling defect, adequate filling of distal tree into small bowel, proximal filling into hepatic ducts and secondary radicals, cystic duct without evidence of leak. Gallbladder removed intact. Cystic duct and artery clips in place without leakge or bleeding at end of procdure. Procedure/Operation Description: The patient was given a preoperative dose of Zosyn 20 minutes before the incision. SCD boots were placed for DVT prophylaxis. The patient had an orogastric tube placed in order to empty the stomach after the induction of general anesthesia. The abdomen was prepped and draped in sterile fashion and in the infraaumbilical midline, a circumlinear incision was made and the umbilical raphe was identified and the fascia was divided between clamps at its base entering the abdomen in an open fashion. A 10 -mm trocar was inserted in the abdomen and the abdomen was insufflated to 15 mmHg pressure with CO2. A 30-degree viewing scope was then inserted and the abdomen was generally inspected and there was not found to be any additional signs of pathology. There was a small/moderate amount of pericholecytic fluid. In the right upper quadrant, two 5-mm ports were placed after the injection of local anesthetic under direct vision and in the subxiphoid midline, an 11-mm radially dilating port was placed in the similar fashion. A laparoscopic aspiration needle was inserted into the fundus and 30cc of bilious fluid removed. Appeared normal. Fluid sent for culture. . The fundus of the gallbladder was identified beneath the liver edge and retracted to the right upper quadrant and the neck of the gallbladder was visualized. There were omental adhesions to the gallbladder that were taken down with a cominbation of sharp dissection and hook cautery. The peritoneal attachments from the lateral portion of the gallbladder/cystic duct junction were gently dissected and divided to open up the [place] of [place]. The [place] was then dissected up onto the liver bed posterior to the gallbladder in order to ensure that this was the cystic duct and not tenting of the common bile duct. The peritoneal attachments on the medial portion of the gallbladder going up to the side of the liver were taken. The critical view was obtained. We then performed an intra-operative cholangiogram. The cystic duct was miked up toward body of gallbladder to remove any possible stones. I did not feel any stones. A clip was placed on the cystic duct close to the neck of the gallbladder. A karma was made in the. cystic duct and a cholangiogram catheter threaded. A cholangiogram was obtained and showed good flow of bile into the duodenum, an intact biliary tree, and absence of any filling defects/other). Visipaque contrast agent was diluted and total of 90cc used to perform multiple fluuroscopic images. There was some slow transit distally at the level of the ampulla. 1gm of glucagon was given IV. After three minutes the choangiogram was repeated and showed prompt filling passed the above area at ampulla. The cholangiogram catheter was then removed under direct vision. The cystic duct then doubly clipped below the cystic duct opening we created and ligated, transected with scissors and the clips were inspected. The cystic artery was identified coursing on to the body of the gallbladder and was divided between clips. Once this was completed, the gallbladder was dissected free from the liver bed using electrocautery and placed this in an endo catch bag. This was withdrawn through the subxiphoid port. Once this was done, the abdomen was reinspected. The clips were in good position on the cystic artery and duct stumps and the abdomen was generally irrigated and drained. Hemostasis confirmed at liver bed. Once this was done, the ports were removed from the abdomen and the abdomen was desufflated with air. The subxiphoid and Umbilical ports were both closed with interrupted 0 [id number] Vicryl suture and the skin incisions were closed with 4-0 monocryl sutures and dermabond. The patient tolerated the procedure well and was extubated in the operating room and stable in recovery after the procedure. All sponge and needle counts were correct at the end of the procedure prior to extubation. I was present for the entirety of the operation. Estimated Blood Loss: 25 Complications: None Specimen: Gallbladder. Bile fluid aspirate specimen for culture Discharge & Condition: Extubated in OR and brought to PACU ins stable condition
--- NOTE | 2018-01-04 08:42 | CP.PCM.PN ---
Subjective - Date & Time of Evaluation Date of Evaluation: 01/04/18 Time of Evaluation: 08:40 - Subjective Subjective: Gastroenterology Fellow/PGY5 Progress Note Patient denies abdominal pain post cholecystectomy yesterday. Tolerated clear liquids last night. Taking a shower during morning evaluation. A 12-point review of systems negative except for as above. Objective - Vital Signs/Intake and Output Vital Signs (last 24 hours): Temp Pulse Resp BP Pulse Ox 98.7 F 102 H 19 134/84 95 01/04/18 07:47 01/04/18 07:47 01/04/18 07:47 01/04/18 07:47 01/04/18 07:47 - Medications Medications: Current Medications Docusate Sodium (Colace) 100 mg PO BID DONTA Hydromorphone HCl (Dilaudid) 0.5 mg IVP Q4H PRN PRN Reason: Pain, moderate (4-7) Lactated Ringer's (Lactated Ringer's) 1,000 mls @ 100 mls/hr IV .Q10H [facility] Ketorolac Tromethamine (Toradol) 30 mg IVP Q6 DONTA Stop: 01/04/18 10:01 Last Admin: 01/04/18 04:02 Dose: 30 mg Ondansetron HCl (Zofran Inj) 4 mg IVP Q6 PRN PRN Reason: Nausea/Vomiting Tramadol HCl (Ultram) 50 mg PO Q6 PRN PRN Reason: Pain, moderate (4-7) - Labs Labs: 01/04/18 06:00 01/04/18 06:00 PT 11.4 Seconds (9.8-13.1) 01/01/18 21:04 INR 1.0 (0.9-1.2) 01/01/18 21:04 APTT 34.8 Seconds (25.6-37.1) 01/01/18 21:04 - Constitutional Appears: Non-toxic, No Acute Distress - Head Exam Head Exam: ATRAUMATIC, NORMOCEPHALIC - Eye Exam Eye Exam: EOMI, PERRL. absent: Scleral icterus Pupil Exam: PERRL. absent: Miosis, Mydriatic - ENT Exam ENT Exam: Mucous Membranes Moist, Normal Oropharynx - Neck Exam Neck Exam: Full ROM, Normal Inspection - Respiratory Exam Respiratory Exam: Clear to Ausculation Bilateral. absent: Rales, Rhonchi, Wheezes - Cardiovascular Exam Cardiovascular Exam: RRR, +S1, +S2. absent: Gallop, Rubs - GI/Abdominal Exam GI & Abdominal Exam: Soft, Normal Bowel Sounds. absent: Distended, Firm, Guarding, Rigid, Tenderness, Organomegaly, Rebound Additional comments: lap all surgical sites C/D/I - Extremities Exam Extremities Exam: Normal Inspection. absent: Pedal Edema - Neurological Exam Neurological Exam: Alert, Awake - Psychiatric Exam Psychiatric exam: Normal Affect, Normal Mood - Skin Skin Exam: Dry, Intact, Normal Color, Warm Assessment and Plan - Assessment and Plan (Free Text) Assessment: 42 year old male with PMH of cholelithiasis presenting with abdominal pain. Active treatment of elevated LFTs in setting of calculous cholecystitis. No prior EGD or colonoscopy. Plan: -POD1 (01/03/18) lap cholecystectomy -LFTs trending up today -IOC-no bile leak or choledocholithiasis -ordered direct bilirubin -pending hepatitis panel -discussed with surgery team -ERCP planned today to evaluate for choledocholithiasis and bile leak -further recommendations after ERCP
[2018-01-04 08:47] LABS: BILIRUBIN,DIRECT 0.8 mg/ml (0.0-0.4)
[2018-01-04] MEDS ORDERED: Indomethacin 50 MG Suppository PR ONE ×2 (08:49→13:10)
[2018-01-04] MEDS ORDERED: Ciprofloxacin 400mg/200ml D5W 400 MG/200 ML BAG IVPB ONE (09:11)
[2018-01-04] MEDS: Potassium CL 10 MEQ/50 ML 50 ML IVPB SCH ×3 (09:24→11:40)
[2018-01-04] MEDS ORDERED: Glucagon Recombinant 1 mg Inj ONE (10:10)
[2018-01-04] MEDS ORDERED: Iohexol 240 (50 ml) ONE (10:10)
[2018-01-04] MEDS ORDERED: EPINEPHrine 1 mg/ml (1:1000) Inj ONE (10:10)
--- NOTE | 2018-01-04 11:20 | CP.PCM.PN ---
Subjective - Date & Time of Evaluation Date of Evaluation: 01/04/18 Time of Evaluation: 13:30 - Subjective Subjective: Patient seen and examined post ERCp today . Feeling well. Denies any abdominal pain. tachycardic HR 1045 Tmax 100.3 No acute issues overnight. WBC trended down to 10 K K 3.1 AST/ALT 190/299 and total Bilirubin trending up to 5.3 today post op day 1 Objective - Vital Signs/Intake and Output Vital Signs (last 24 hours): Temp Pulse Resp BP Pulse Ox 98.7 F 102 H 19 134/84 95 01/04/18 07:47 01/04/18 07:47 01/04/18 07:47 01/04/18 07:47 01/04/18 07:47 - Medications Medications: Current Medications Docusate Sodium (Colace) 100 mg PO BID [facility] Last Admin: 01/04/18 08:56 Dose: Not Given Hydromorphone HCl (Dilaudid) 0.5 mg IVP Q4H PRN PRN Reason: Pain, moderate (4-7) Lactated Ringer's (Lactated Ringer's) 1,000 mls @ 100 mls/hr IV .Q10H [facility] Last Admin: 01/04/18 09:22 Dose: 100 mls/hr Potassium Chloride (Potassium Cl 10meq/50ml Sterile Water) 50 mls @ 50 mls/hr IVPB Q1 [facility] Stop: 01/04/18 12:59 Last Admin: 01/04/18 10:39 Dose: 50 mls/hr Ondansetron HCl (Zofran Inj) 4 mg IVP Q6 PRN PRN Reason: Nausea/Vomiting Tramadol HCl (Ultram) 50 mg PO Q6 PRN PRN Reason: Pain, moderate (4-7) - Labs Labs: 01/04/18 06:00 01/04/18 06:00 PT 11.4 Seconds (9.8-13.1) 01/01/18 21:04 INR 1.0 (0.9-1.2) 01/01/18 21:04 APTT 34.8 Seconds (25.6-37.1) 01/01/18 21:04 - Constitutional Appears: Non-toxic, No Acute Distress - Head Exam Head Exam: ATRAUMATIC, NORMOCEPHALIC - Eye Exam Eye Exam: EOMI, Normal appearance, PERRL Pupil Exam: NORMAL ACCOMODATION - ENT Exam ENT Exam: Mucous Membranes Moist, Normal Exam - Neck Exam Neck Exam: Full ROM, Normal Inspection - Respiratory Exam Respiratory Exam: Clear to Ausculation Bilateral, NORMAL BREATHING PATTERN. absent: Rales, Rhonchi, Wheezes - Cardiovascular Exam Cardiovascular Exam: Tachycardia, REGULAR RHYTHM, +S1, +S2. absent: JVD - GI/Abdominal Exam GI & Abdominal Exam: Soft, Tenderness, Normal Bowel Sounds. absent: Distended, Guarding, Rebound - Rectal Exam Rectal Exam: Deferred - Extremities Exam Extremities Exam: Full ROM, Normal Capillary Refill, Normal Inspection. absent : Calf Tenderness, Pedal Edema - Neurological Exam Neurological Exam: Alert, Awake, CN II-XII Intact, Oriented x3 - Psychiatric Exam Psychiatric exam: Normal Affect - Skin Skin Exam: Dry, Normal Color, Warm Assessment and Plan - Assessment and Plan (Free Text) Assessment: 42 yo male with PMH of biliary colic in 2014 who was recommended elective cholecystectomy, but did not follow up, presented to the ER with 5 day history intractable right upper quadrant pain, moderate to severe, crampy, severe, and progressively worsening, associated with nausea without vomiting.Abdominal US showed acute cholecystitis. Patient admitted with diagnosis of acute cholecystitis, kept NPO, started on IVF,Zosyn IV and pain management, surgery and GI consulted . MRCP showed no CBD stone . He underwent laparascopi cholecystectomy with cholangiogram yesterday 01/03 by general surgery . Today underwent ERCP to rule out biliary leak or choledocholithiasis since post op LFT-s and total bilirubin trending up 1.Acute cholecystitis and cholelithiasis US showed acute cholecystitis MRCP showed cholelithiasis but no CBD stone s/p lap cholecystectomy and cholangiogram 6.7 that showed no stones in CBD LFT-s and total bilirubin trending up today ASt/ALt 199/299 total bilirubin 5.3 S/p ERCP today by GI that showed no biliary leak and no stone Continue IVF and pain management Continue Zosyn IV Repeat CBC and CMP in AM 2. Hepatic Steatosis unclear etiology will need follow up in 6 months with MRI lipid panel-- wnl ,hepatitis profile - negative Repeat Bilirubin in AM 3. Hypokalemia likely due to poor GI intake replaced 4. DVT prophylaxis SCDs
[2018-01-04 12:39] LABS: HEPATITIS B SURFACE AG Negative (NEGATIVE)
[2018-01-04 12:46] LABS: HEPATITIS A IGM NEGATIVE (NEGATIVE); HEPATITIS B CORE AB NEGATIVE (NEGATIVE)
[2018-01-04] MEDS ORDERED: Midazolam 2 MG/2 ML VIAL ONE (12:55)
[2018-01-04] MEDS ORDERED: Succinylcholine 200 mg/10 ml Inj IV ONE (12:56)
[2018-01-04] MEDS ORDERED: Propofol 10 mg/ml Inj (20 ML) ONE (12:56)
[2018-01-04 12:57] LABS: HEPATITIS C ANTIBODY NEGATIVE (NEGATIVE)
[2018-01-04] MEDS ORDERED: Ciprofloxacin 400mg/200ml D5W IVPB ONE (13:00)
[2018-01-04] MEDS ORDERED: Lactated Ringer's 500 ML IV ONE ×3 (14:05→14:06)
[2018-01-04] MEDS ORDERED: Lactated Ringer's 1,000 ML IV SCH ×2 (14:30)
[2018-01-04] MEDS: Lactated Ringer's 1,000 ML IV SCH ×3 (16:18→22:57)
[2018-01-04] MEDS: Piperacillin/Tazobact 4.5 GM in Sodium Chloride 0.9% 100 ML IVPB SCH (16:19)
[2018-01-04 19:21] LABS: ALBUMIN 3.6 g/dL (3.5-5.0); ALT/SGPT 270 U/L (21-72); AST/SGOT 139 U/L (17-59); BLOOD UREA NITROGEN 10 mg/dl (9-20); CALCIUM 7.9 mg/dL (8.4-10.2); GFR AFRICAN-AMERICAN > 60; GFR NON-AFRICAN AMERICAN > 60; LIPASE 134 U/L (23-300)
[2018-01-05 00:23] VITALS: RESP 19
[2018-01-05] MEDS: Lactated Ringer's 1,000 ML IV SCH ×3 (00:30→05:57)
[2018-01-05] MEDS: Piperacillin/Tazobact 4.5 GM in Sodium Chloride 0.9% 100 ML IVPB SCH ×2 (01:30→09:05)
[2018-01-05 07:31] LABS: HEMOGLOBIN 12.4 g/dL (12.0-18.0); MEAN CELL VOLUME 88.3 fl (80.0-94.0); MEAN CORPUSCULAR HEMOGLOBIN 31.6 pg (27.0-31.0); MEAN CORPUSCULAR HGB CONC 35.8 g/dL (33.0-37.0); RBC 3.91 Mil/uL (4.40-5.90); WHITE BLOOD COUNT 7.6 K/uL (4.8-10.8)
[2018-01-05 07:48] LABS: ALT/SGPT 195 U/L (21-72); AST/SGOT 71 U/L (17-59); BLOOD UREA NITROGEN 8 mg/dl (9-20); CALCIUM 7.7 mg/dL (8.4-10.2); GFR AFRICAN-AMERICAN > 60; GFR NON-AFRICAN AMERICAN > 60
[2018-01-05 07:58] VITALS: BP 122/80; PULSE 103; TEMP 99.1; O2SAT 96
[2018-01-05] MEDS ORDERED: Potassium Chloride 20 mEq/15 ml LIQ UD PO ONE (08:07)
--- NOTE | 2018-01-05 10:33 | CP.PCM.PN ---
Subjective - Date & Time of Evaluation Date of Evaluation: 01/05/18 Time of Evaluation: 08:30 - Subjective Subjective: Surgery progress note. Dr. Kraft Pt seen and examined at bedside. No acute events overnight. States that he has had two loose bowel movements overnight. Abd pain improved. No N/V/D. Tolerating diet. No new complaints. Objective - Vital Signs/Intake and Output Vital Signs (last 24 hours): Temp Pulse Resp BP Pulse Ox 99.1 F 103 H 19 122/80 96 01/05/18 07:58 01/05/18 07:58 01/05/18 07:58 01/05/18 07:58 01/05/18 07:58 - Medications Medications: Current Medications Docusate Sodium (Colace) 100 mg PO BID [facility] Last Admin: 01/05/18 09:08 Dose: Not Given Lactated Ringer's (Lactated Ringer's) 1,000 mls @ 200 mls/hr IV .Q5H [facility] Last Admin: 01/05/18 05:57 Dose: Not Given Lactated Ringer's (Lactated Ringer's) 1,000 mls @ 999 mls/hr IV .Q1H1M [facility] Last Admin: 01/04/18 15:20 Dose: 999 mls/hr Piperacillin Sod/Tazobactam (Sod 4.5 gm/ Sodium Chloride) 100 mls @ 100 mls/hr IVPB Q8 DONTA PRN Reason: Protocol Last Admin: 01/05/18 09:05 Dose: 100 mls/hr Ondansetron HCl (Zofran Inj) 4 mg IVP Q6 PRN PRN Reason: Nausea/Vomiting Tramadol HCl (Ultram) 50 mg PO Q6 PRN PRN Reason: Pain, moderate (4-7) - Labs Labs: 01/05/18 05:20 01/05/18 05:20 PT 11.4 Seconds (9.8-13.1) 01/01/18 21:04 INR 1.0 (0.9-1.2) 01/01/18 21:04 APTT 34.8 Seconds (25.6-37.1) 01/01/18 21:04 - Constitutional Appears: Well, Non-toxic, No Acute Distress - Head Exam Head Exam: ATRAUMATIC, NORMAL INSPECTION, NORMOCEPHALIC - Eye Exam Eye Exam: EOMI, Normal appearance. absent: Scleral icterus - ENT Exam ENT Exam: Mucous Membranes Moist - Respiratory Exam Respiratory Exam: NORMAL BREATHING PATTERN. absent: Accessory Muscle Use, Respiratory Distress - Cardiovascular Exam Cardiovascular Exam: RRR. absent: JVD - GI/Abdominal Exam GI & Abdominal Exam: Soft. absent: Distended, Guarding, Rigid, Tenderness, Rebound Additional comments: skin incisions intact with dermabond. - Extremities Exam Extremities Exam: Normal Inspection. absent: Calf Tenderness - Neurological Exam Neurological Exam: Alert, Awake, Oriented x3 - Skin Skin Exam: Dry, Intact, Normal Color, Warm Assessment and Plan - Assessment and Plan (Free Text) Assessment: 42yo M s/p Lap all w intraop IOC. POD2. s/p ERCP POD1 - no evidence of retained biliary stones. LFTs down-trending. Plan: - Cleared for discharge from surgical standpoint - Prescriptions left on chart, to be given upon discharge. - No need for further abx at this time - Follow up with Dr. Kraft in office in 3 weeks. Call for appointment - Post-operative D/C instructions printed and on chart. To be given to patient upon discharge - Detailed conversation about plan for follow-up discussed with patient, who expressed understanding and agrees with plan Further recs as per Dr. Swapnil Ospina PGY1 surgery pager: [phone]
--- NOTE | 2018-01-05 10:54 | CP.PCM.DIS ---
Provider - Provider Date of Admission: 01/01/18 23:41 Attending physician: Mina Rodriguez DO Primary care physician: none Consults: GI consult Surgery consult Time Spent in preparation of Discharge (in minutes): 15 Hospital Course - Lab Results Lab Results: Micro Results 01/03/18 15:14 Other: Please Indicate Gram Stain - Final 01/03/18 15:14 Other: Please Indicate Wound Culture - Preliminary No growth. 01/01/18 23:58 Blood-Venous Blood Culture - Preliminary NO GROWTH AFTER 3 DAYS 01/01/18 00:04 Blood-Venous Blood Culture - Preliminary NO GROWTH AFTER 3 DAYS Most Recent Lab Values WBC 7.6 K/uL (4.8-10.8) 01/05/18 05:20 RBC 3.91 Mil/uL (4.40-5.90) L 01/05/18 05:20 Hgb 12.4 g/dL (12.0-18.0) 01/05/18 05:20 Hct 34.5 % (35.0-51.0) L 01/05/18 05:20 MCV 88.3 fl (80.0-94.0) 01/05/18 05:20 MCH 31.6 pg (27.0-31.0) H 01/05/18 05:20 MCHC 35.8 g/dL (33.0-37.0) 01/05/18 05:20 RDW 14.0 % (11.5-14.5) 01/05/18 05:20 Plt Count 170 K/uL (130-400) 01/05/18 05:20 MPV 8.2 fl (7.2-11.7) 01/03/18 05:50 Neut % (Auto) 76.2 % (50.0-75.0) H 01/03/18 05:50 Lymph % (Auto) 12.3 % (20.0-40.0) L 01/03/18 05:50 [place] % (Auto) 10.4 % (0.0-10.0) H 01/03/18 05:50 Eos % (Auto) 0.7 % (0.0-4.0) 01/03/18 05:50 Baso % (Auto) 0.4 % (0.0-2.0) 01/03/18 05:50 Neut # (Auto) 8.6 K/uL (1.8-7.0) H 01/03/18 05:50 Lymph # (Auto) 1.4 K/uL (1.0-4.3) 01/03/18 05:50 [place] # (Auto) 1.2 K/uL (0.0-0.8) H 01/03/18 05:50 Eos # (Auto) 0.1 K/uL (0.0-0.7) 01/03/18 05:50 Baso # (Auto) 0.0 K/uL (0.0-0.2) 01/03/18 05:50 Neutrophils % (Manual) 80 % (42-75) H 01/02/18 06:00 Lymphocytes % (Manual) 9 % (20-50) L 01/02/18 06:00 Monocytes % (Manual) 11 % (0-10) H 01/02/18 06:00 Platelet Estimate Normal (NORMAL) 01/02/18 06:00 RBC Morphology Normal (NORMAL) 01/02/18 06:00 PT 11.4 Seconds (9.8-13.1) 01/01/18 21:04 INR 1.0 (0.9-1.2) 01/01/18 21:04 APTT 34.8 Seconds (25.6-37.1) 01/01/18 21:04 Sodium 141 mmol/l (132-148) 01/05/18 05:20 Potassium 3.4 MMOL/L (3.6-5.0) L 01/05/18 05:20 Chloride 106 mmol/L (98-107) 01/05/18 05:20 Carbon Dioxide 28 mmol/L (22-30) 01/05/18 05:20 Anion Gap 10 (10-20) 01/05/18 05:20 BUN 8 mg/dl (9-20) L 01/05/18 05:20 Creatinine 0.7 mg/dl (0.8-1.5) L 01/05/18 05:20 Est GFR ( Amer) > 60 01/05/18 05:20 Est GFR (Non-Af Amer) > 60 01/05/18 05:20 Random Glucose 119 mg/dL (75-110) H 01/05/18 05:20 Hemoglobin A1c 4.8 % (4.2-6.5) 01/04/18 06:00 Calcium 7.7 mg/dL (8.4-10.2) L 01/05/18 05:20 Total Bilirubin 2.6 mg/dl (0.2-1.3) H 01/05/18 05:20 Direct Bilirubin 0.8 mg/ml (0.0-0.4) H 01/04/18 07:04 AST 71 U/L (17-59) H D 01/05/18 05:20 ALT 195 U/L (21-72) H D 01/05/18 05:20 Alkaline Phosphatase 108 U/L (38-126) 01/05/18 05:20 Total Protein 6.1 G/DL (6.3-8.2) L 01/05/18 05:20 Albumin 3.0 g/dL (3.5-5.0) L 01/05/18 05:20 Globulin 3.1 gm/dL (2.2-3.9) 01/05/18 05:20 Albumin/Globulin Ratio 1.0 (1.0-2.1) 01/05/18 05:20 Triglycerides 45 mg/DL (0-149) 01/04/18 06:00 Cholesterol 71 mg/dL (0-199) 01/04/18 06:00 LDL Cholesterol Direct < 30 mg/dL (0-129) 01/04/18 06:00 HDL Cholesterol 31 MG/DL (30-70) 01/04/18 06:00 Lipase 134 U/L (23-300) 01/04/18 18:51 Urine Color Yellow (YELLOW) 01/01/18 23:10 Urine Clarity Clear (Clear) 01/01/18 23:10 Urine pH 7.0 (5.0-8.0) 01/01/18 23:10 Ur Specific [place] 1.016 (1.003-1.030) 01/01/18 23:10 Urine Protein Negative mg/dL (NEGATIVE) 01/01/18 23:10 Urine Glucose (UA) Neg mg/dL (Normal) 01/01/18 23:10 Urine Ketones Negative mg/dL (NEGATIVE) 01/01/18 23:10 Urine Blood Negative (NEGATIVE) 01/01/18 23:10 Urine Nitrate Negative (NEGATIVE) 01/01/18 23:10 Urine Bilirubin Negative (NEGATIVE) 01/01/18 23:10 Urine Urobilinogen 0.2-1.0 mg/dL (0.2-1.0) 01/01/18 23:10 Ur Leukocyte Esterase Neg [place]/uL (Negative) 01/01/18 23:10 Urine RBC (Auto) 2 /hpf (0-3) 01/01/18 23:10 Urine Microscopic WBC < 1 /hpf (0-5) 01/01/18 23:10 Hepatitis A IgM Ab Negative (NEGATIVE) 01/04/18 06:00 Hep Bs Antigen Negative (NEGATIVE) 01/04/18 06:00 Hep B Core IgM Ab Negative (NEGATIVE) 01/04/18 06:00 Hepatitis C Antibody Negative (NEGATIVE) 01/04/18 06:00 - Hospital Course Hospital Course: 42 yo male with PMH of biliary colic in 2014 who was recommended elective cholecystectomy, but did not follow up, presented to the ER with 5 day history intractable right upper quadrant pain, moderate to severe, crampy, severe, and progressively worsening, associated with nausea without vomiting.Abdominal US showed acute cholecystitis. Patient admitted with diagnosis of acute cholecystitis, kept NPO, started on IVF,Zosyn IV and pain management, surgery and GI consulted . MRCP showed no CBD stone . He underwent laparascopic cholecystectomy with cholangiogram yesterday 01/03 by general surgery that showed acute cholecystitis. Underwent ERCP on 01/04 to rule out biliary leak or choledocholithiasis since post op LFT-s and total bilirubin trended up.ERCP showed no CBD stone. Today patient clinically improving, hemodynamically stable, afebrile WBC - normalized, tolerating diet. and LFT-s and bilirubin trended down . Will discharge patient home on pain management PRN a, Cipro and flagyl Po for 1 week. Follow up with surgery in 1 week 1.Acute cholecystitis and cholelithiasis US showed acute cholecystitis MRCP showed cholelithiasis but no CBD stone s/p lap cholecystectomy and cholangiogram 01/03 that showed no stones in CBD but cholecystitis S/p ERCP 01/04 by GI that showed no biliary leak and no stone treated with IVF and pain management Received Zosyn IV LFT-s and bilirubin trending down. Tolerating diet . Will d/c home 2. Hepatic Steatosis unclear etiology will need follow up in 6 months with MRI lipid panel-- wnl ,hepatitis profile - negative lft-s and bilirubin trending down 3. Hypokalemia likely due to poor GI intake replaced 4. DVT prophylaxis SCDs Discharge Exam - Head Exam Head Exam: ATRAUMATIC, NORMOCEPHALIC - Eye Exam Eye Exam: EOMI, Normal appearance, PERRL Pupil Exam: NORMAL ACCOMODATION - ENT Exam ENT Exam: Mucous Membranes Moist, Normal Exam - Neck Exam Neck exam: Full Rom, Normal Inspection - Respiratory Exam Respiratory Exam: Clear to PA & Lateral, NORMAL BREATHING PATTERN. absent: Rales, Rhonchi, Wheezes - Cardiovascular Exam Cardiovascular Exam: REGULAR RHYTHM, RRR, +S1, +S2. absent: JVD - GI/Abdominal Exam GI & Abdominal Exam: Normal Bowel Sounds, Soft. absent: Distended, Guarding, Rebound, Tenderness - Rectal Exam Rectal Exam: Deferred - Extremities Exam Extremities exam: normal capillary refill, normal inspection, pedal pulses present - Back Exam Back exam: NORMAL INSPECTION - Neurological Exam Neurological exam: Alert, CN II-XII Intact - Psychiatric Exam Psychiatric exam: Normal Affect, Normal Mood - Skin Skin Exam: Dry, Intact, Normal Color, Warm Discharge Plan - Discharge Medications Prescriptions: Ciprofloxacin [Cipro] 500 mg PO BID #14 tab Metronidazole [Flagyl] 500 mg PO TID #21 tablet traMADol [Ultram] 50 mg PO Q6 PRN #20 tab PRN Reason: Pain, Moderate (4-7) - Follow Up Plan Condition: STABLE Disposition: HOME/ ROUTINE Patient education suggested?: Yes Instructions: Cholecystitis (DC) Referrals: Michael Ferrara MD, PhD [Staff Provider] - Anastacia Kraft MD [Staff Provider] -
== END 2018-01-05 13:17 | disposition home or self-care (01) | DRG 419 ==
LOC: H.ER 20:12 → H.ERHOLD 23:41 → H.MEDSURG1 01-02 01:14
PROVIDERS: ADMIT Internal Medicine; ATTEND Internal Medicine
PROC: 0FJB8ZZ Inspection of Hepatobiliary Duct, Via Natural or Artificial Opening Endoscopic (ICD-10-PCS; 2018-01-02)
PROC: BF03YZZ Plain Radiography of Gallbladder and Bile Ducts using Other Contrast (ICD-10-PCS; 2018-01-03)
PROC: 0FT44ZZ Resection of Gallbladder, Percutaneous Endoscopic Approach (ICD-10-PCS; principal; 2018-01-03 12:00)
PROC: 0FJB8ZZ Inspection of Hepatobiliary Duct, Via Natural or Artificial Opening Endoscopic (ICD-10-PCS; 2018-01-04)
DX: K80.00 Calculus of gallbladder with acute cholecystitis without obstruction (principal); E80.4 Gilbert syndrome; E87.6 Hypokalemia; K66.0 Peritoneal adhesions (postprocedural) (postinfection); K76.0 Fatty (change of) liver, not elsewhere classified; R00.0 Tachycardia, unspecified; R50.9 Fever, unspecified; R79.89 Other specified abnormal findings of blood chemistry